=== PATIENT | male | born 1955 | race Asian ===

== ENCOUNTER 2023-01-06 07:34 | Outpatient (CLI) | payer OTHER | END 2023-01-06 07:35 | disposition home or self-care (01) | LOC: CSHULT 07:34 | PROVIDERS: ATTEND Student in an Organized Health Care Education/Training Program | DX: Z13.6 Encounter for screening for cardiovascular disorders (principal); Z12.2 Encounter for screening for malignant neoplasm of respiratory organs; F17.210 Nicotine dependence, cigarettes, uncomplicated | CPT/HCPCS: 71271; 76706 ==

== ENCOUNTER 2025-01-09 11:09 | Emergency (ER) | payer OTHER ==
[2025-01-09] MEDS ORDERED: Ketorolac Tromethamine 30 MG (1 mL) VIAL ONE (12:23)
[2025-01-09] MEDS ORDERED: Cyclobenzaprine 10 MG TAB ONE (12:24)
== END 2025-01-09 12:38 | disposition home or self-care (01) ==
LOC: CSHERS 11:09
DX: M54.41 Lumbago with sciatica, right side (principal); I10 Essential (primary) hypertension; F17.210 Nicotine dependence, cigarettes, uncomplicated
CPT/HCPCS: 96372; 99283; J1885

== ENCOUNTER 2025-01-11 16:15 | Outpatient (CLI) | payer OTHER | END 2025-01-11 16:16 | disposition home or self-care (01) | LOC: CSHLAB 16:15 | PROVIDERS: ATTEND Family Medicine | DX: M54.41 Lumbago with sciatica, right side (principal); M70.71 Other bursitis of hip, right hip; M47.816 Spondylosis without myelopathy or radiculopathy, lumbar region; M16.11 Unilateral primary osteoarthritis, right hip | CPT/HCPCS: 72110 ==